=== PATIENT | male | born 1985 | race Caucasian/White ===

== ENCOUNTER 2016-11-02 15:17 | Emergency (ER) | payer OTHER ==
[~2016-11-02] VITALS: Ht 172.7 cm; Wt 89.4 kg
[2016-11-02 17:26] VITALS: BP 157/79
== END 2016-11-02 17:38 | disposition home or self-care (01) ==
LOC: EXP 15:17 → EME 15:17 → EXP 17:38
DX: S51.811A Laceration without foreign body of right forearm, initial encounter (principal); W26.8XXA Contact with other sharp object(s), not elsewhere classified, initial encounter; Y92.812 Truck as the place of occurrence of the external cause; Z23 Encounter for immunization
CPT/HCPCS: 73090; 99281; 99284